=== PATIENT | male | born 1965 | race Caucasian/White ===

== ENCOUNTER → 2018-06-12 | Outpatient (CLI) | payer OTHER ==
[~2018-06-12] MED LIST: ASPI325T39 PO; CETI10TA84 PO; IBUP-1050 PO; OXYM0.0592 PO; PSYL48.59 PO
[2018-06-12 13:53] LABS: BASO % 0.1 %; BASO ABS # 0.02 K/uL (0-0.2); EOS % 0.6 %; EOS ABS # 0.12 K/uL (0-0.5); HEMATOCRIT 48.7 % (42-52); HEMOGLOBIN 15.6 g/dL (14.0-18.0); IG# 0.17 K/uL (0.00-0.02); LYMPH % 19.5 %; LYMPH ABS # 3.72 K/uL (1.2-3.4); MEAN CELL VOLUME 92.2 fL (80-100); MEAN CORPUSCULAR HEMOGLOBIN 29.5 pg (25-34); MEAN PLATELET VOLUME 10.1 fL (7.4-10.4); MONO % 8.4 %; MONO ABS # 1.61 K/uL (0.11-0.59); NEUT % 70.5 %; NEUT ABS # 13.45 K/uL (1.4-6.5); PLATELET COUNT 437 K/uL (130-400); RED CELL DISTRIBUTION WIDTH CV 16.3 % (11.5-14.5); RED CELL DISTRIBUTION WIDTH SD 54.7 fL (36.4-46.3); WHITE BLOOD COUNT 19.09 K/uL (4.8-10.8)
[2018-06-12 14:34] LABS: ALBUMIN 3.7 gm/dl (3.4-5.0); ALKALINE PHOSPHATASE 80 U/L (45-117); ALT/SGPT 30 U/L (12-78); AST/SGOT 13 U/L (15-37); BLOOD UREA NITROGEN 14 mg/dl (7-18); CALCIUM 8.9 mg/dl (8.5-10.1); CARBON DIOXIDE 28 mmol/L (21-32); CREATININE 1.15 mg/dl (0.60-1.40); GLUCOSE 76 mg/dl (70-99); POTASSIUM 3.9 mmol/L (3.5-5.1); SODIUM 137 mmol/L (136-145); TOTAL PROTEIN 7.9 gm/dl (6.4-8.2)
[2018-06-14 13:23] LABS: QUANTIF MITOGEN-NIL 2.72 IU/ML; QUANTIFERON NEGATIVE (NEGATIVE); QUANTIFERON NIL 0.04 IU/ML
== END | disposition home or self-care (01) ==
LOC: C.LABPBG 09:58
PROVIDERS: ATTEND Physician Assistant
DX: K51.00 Ulcerative (chronic) pancolitis without complications (principal); R19.7 Diarrhea, unspecified